=== PATIENT | female | born 1960 | race Caucasian/White ===

== ENCOUNTER 2018-09-17 14:10 | Emergency (ER) | payer SELFPAY ==
[~2018-09-17 14:10] MED LIST: LOR5/325 PO; NO MEDS
--- NOTE | 2018-09-17 14:40 | ER Report ---
History and Physical Time Seen By MD: 14:40 HPI/ROS CHIEF COMPLAINT: Left wrist pain HISTORY OF PRESENT ILLNESS: 58-year-old female patient presents to emergency room with complaint of left wrist pain. Patient states that she was walking home from the store yesterday when she slipped and fell on the ice. Patient states she fell so hard that she is not able to even put her hand out. Patient denies any numbness or tingling. Patient states she does have significant amounts of pain. Patient states that she did come in last night, however at that time it was full and she was able to wait to be seen. She states that she did elevate her wrist, she applied ice all with no improvement. Patient states the pain has not gotten better his choice, and be evaluated. REVIEW OF SYSTEMS: Respiratory: No cough, no dyspnea. Cardiovascular: No chest pain, no palpitations. Gastrointestinal: No vomiting, no abdominal pain. Musculoskeletal: As noted above Allergies: Coded Allergies: Sulfa (Sulfonamide Antibiotics) (Verified Allergy, Intermediate, "REALLY SICK", 09/17/18) Home Meds Active Scripts Hydrocodone Bit/Acetaminophen (HYDROCODON-ACETAMINOPHEN 5-325) 1 Each Tablet, 1 EACH PO Q4-6H PRN for PAIN, #8 TAB Prov:OWEN CRAMER 09/17/18 Discontinued Reported Medications [No Meds] No Conflict Check, 0 Refills 09/20/09 Discontinued Scripts Hydrocodone Bit/Acetaminophen (HYDROCODON-ACETAMINOPHEN 5-325) 1 Each Tablet, 1 EACH PO Q4-6H PRN for PAIN, #20 TAB 0 Refills TAKE ONE TABLET BY MOUTH EVERY 4-6 HOURS NEEDED FOR PAIN Prov:SKYLER STEVENS MD 04/14/17 Past Medical/Surgical History Patient has a past medical history of jaw fracture, back fracture. Patient has surgical history of jaw surgery. Reviewed Nurses Notes: Yes Hx Substance Use Disorder: No Hx Alcohol Use: No Constitutional Vital Sign - Last 24 Hours 09/17/18 14:41 Temp 98.0 Pulse 57 Resp 16 B/P (MAP) 134/83 Pulse Ox 85 O2 Delivery Room Air Physical Exam General Appearance: The patient is alert, has no immediate need for airway protection and no current signs of toxicity. Respiratory: Chest is non tender, lungs are clear to auscultation. Cardiac: regular rate and rhythm Gastrointestinal: Abdomen is soft and non tender, no masses, bowel sounds normal. Musculoskeletal: Neck: Neck is supple and non tender. Extremities have full range of motion and are non tender. Patient does have tenderness to the left wrist, she does have a deformity of the left wrist. Skin: No rashes or lesions. DIFFERENTIAL DIAGNOSIS: After history and physical exam differential diagnosis was considered for fracture, sprain, dislocation. Medical Decision Making EKG/Imaging Imaging XR WRIST 3 OR MORE VIEWS LT Indication: Fracture, post reduction Comparison: 09/17/2018 Findings: Compared to the prior study, there has been interval reduction of the comminuted angulated intra-articular fracture of the distal radius. Mild dorsal angulation still present but less than prior study. Fracture fragments otherwise appear aligned. Cast material is present. No evidence of radiopaque foreign body. There is no focal soft tissue abnormality. IMPRESSION: 1. Reduction of distal radius fracture with slight dorsal angulation still present Report Dictated By: Gwyn Shields at 09/17/2018 4:26 PM Report E-Signed By: Gwyn Shields at 09/17/2018 4:27 PM FOREARM LEFT Indication: Left forearm pain after fall. Comparison: None available Findings: Two views of the left forearm show distal radial compression fracture with mild dorsal angulation. No other fracture or dislocation. No bony lesions or periosteal normality. No significant degenerative changes. Soft tissues about the wrist does show swelling. No evidence of radiopaque foreign body. IMPRESSION: 1. Distal radial compression fracture. Report Dictated By: Ian Hernández at 09/17/2018 3:16 PM Report E-Signed By: Ian Hernández at 09/17/2018 3:19 PM XR WRIST 3 OR MORE VIEWS LT Indication: Left wrist pain after fall. Comparison: None Available. Findings: Three views of the left wrist. There is a comminuted distal left radial compression fracture with extension to the articular surface. There is mild dorsal angulation at the fracture site. Question of a tiny avulsion fracture off the ulnar styloid. No other fracture. No dislocation. No bony lesions or periosteal abnormality. No appreciable degenerative changes. Soft tissues show swelling. No radiopaque foreign body. IMPRESSION: 1. Distal left radial compression fracture. Possible tiny avulsion off the ulnar styloid. Report Dictated By: Ian Hernández at 09/17/2018 3:19 PM Report E-Signed By: Ian Hernández at 09/17/2018 3:21 PM ED Course/Re-evaluation ED Course Patient was monitored exam room, history and physical were obtained. Differential diagnoses were considered. Patient did have obvious deformity of the left wrist. X-ray of the left wrist and forearm were performed. She did have a distal radial fracture with displacement. I discussed findings with the patient. We discussed treatment options and patient did agree for conscious sedation. I did attempt a hematoma block with reduction. Patient had improvement in alignment with the naked eye. Patient was splinted in a sugar tong splint and a repeat x-ray was performed. Patient had improvement of the displacement with only slight displacement remaining. Patient is neurovascularly intact. We will go ahead and discharge patient home at this time. We'll have her follow-up with [facility]. She is to ice her wrist through the splint. Patient was given a limited supply of pain medication. Patient is return to emergency room with any numbness or tingling in the hand, any worsening of her condition. Patient verbalized understanding and agreement with plan. Procedure: Fracture reduction The rest was reduced in the usual fashion without complications. Post reduction the patient's neurovascular exam is normal. Post reduction x-ray demonstrates reduction of the joint to near anatomic position with slight angulation remaining. The procedure was performed by myself. Procedure: Splint placement. A sugar tong static splint was applied for distal radial fracture. After application of the splint I re-examined the patient. The splint was adequately immobilizing the joint and distal to the splint the patient's circulation and sensation was intact. Decision to Disposition Date: Sep 17, 2018 Decision to Disposition Time: 16:18 Depart Departure Latest Vital Signs Vital Signs Date Time Temp Pulse Resp B/P (MAP) Pulse Ox O2 Delivery O2 Flow Rate FiO2 09/17/18 14:41 98.0 57 16 134/83 85 Room Air Impression: Primary Impression: Left wrist fracture Condition: Improved Disposition: HOME OR SELF-CARE Referrals: KAIT PITTMAN MD New Scripts Hydrocodone Bit/Acetaminophen (HYDROCODON-ACETAMINOPHEN 5-325) 1 Each Tablet 1 EACH PO Q4-6H PRN for PAIN, #8 TAB Prov: OWEN CRAMER [employer] [facility] 09/17/18 Patient Instructions: Wrist Fracture in Adults (ED) Additional Instructions: Limit activity by pain. Ice the wrist through the splint; 2-3 times a day for 20-30 minutes. If the splint is feeling too tight you may loosen the eduin wrap and rewrap it. Follow up with [facility], call tomorrow to make an appointment. Keep the splint dry, wrap it with a bag and tape to keep the water out. Return to the ER with uncontrollable pain or numbness to the hand. You may take Ibuprofen as needed for pain in addition to the pain medication. Don't take any additional Tylenol while on the pain medication. Problem Qualifiers Primary Impression: Left wrist fracture Encounter type: initial encounter Fracture type: closed Qualified Codes: S62.102A - Fracture of unspecified carpal bone, left wrist, initial encounter for closed fracture OWEN CRAMER Sep 17, 2018 14:40
[2018-09-17 15:00] VITALS: BP 129/70
[2018-09-17] MEDS ORDERED: PROPOFOL EMUL 10MG/ML 20 ML VL IV ONE (15:10)
[2018-09-17] MEDS ORDERED: NS(*) 0.9% 1000 ML BAG 1,000 ML IV ONE (15:10)
[2018-09-17] MEDS ORDERED: fentaNYL CITR 100 MCG/2 ML AMP IVP ONE (15:10)
[2018-09-17] MEDS ORDERED: ONDANSETRON 4 MG/2 ML VIAL IVP ONE (15:10)
--- NOTE | 2018-09-17 15:24 | RADIOLOGY IMAGING REPORT ---
FACILITY: [facility] [place] PATIENT NAME: Mari Reyes : 1960 MR: [id number] V: [id number] EXAM DATE: ORDERING PHYSICIAN: OWEN CRAMER TECHNOLOGIST: Location: [facility] Patient: Mari Reyes : 1960 Visit/Account:[id number] Date of Sevice: 09/17/2018 FOREARM LEFT Indication: Left forearm pain after fall. Comparison: None available Findings: Two views of the left forearm show distal radial compression fracture with mild dorsal angulation. N o other fracture or dislocation. No bony lesions or periosteal normality. No significant degenerati ve changes. Soft tissues about the wrist does show swelling. No evidence of radiopaque foreign body. IMPRESSION: 1. Distal radial compression fracture. Report Dictated By: Ian Hernández at 09/17/2018 3:16 PM Report E-Signed By: Ian Hernández at 09/17/2018 3:19 PM WSN:[id number]
--- NOTE | 2018-09-17 15:26 | RADIOLOGY IMAGING REPORT ---
FACILITY: [facility] PATIENT NAME: Mari Reyes : 1960 MR: [id number] V: [id number] EXAM DATE: ORDERING PHYSICIAN: OWEN CRAMER TECHNOLOGIST: Location: [facility] Patient: Mari Reyes : 1960 Visit/Account:[id number] Date of Sevice: 09/17/2018 XR WRIST 3 OR MORE VIEWS LT Indication: Left wrist pain after fall. Comparison: None Available. Findings: Three views of the left wrist. There is a comminuted distal left radial compression fracture with ex tension to the articular surface. There is mild dorsal angulation at the fracture site. Question of a tiny avulsion fracture off the ulnar styloid. No other fracture. No dislocation. No bony lesion s or periosteal abnormality. No appreciable degenerative changes. Soft tissues show swelling. No r adiopaque foreign body. IMPRESSION: 1. Distal left radial compression fracture. Possible tiny avulsion off the ulnar styloid. Report Dictated By: Ian Hernández at 09/17/2018 3:19 PM Report E-Signed By: Ian Hernández at 09/17/2018 3:21 PM [id number]
[2018-09-17] MEDS ORDERED: HYDR-385 PO (16:16)
--- NOTE | 2018-09-17 16:31 | RADIOLOGY IMAGING REPORT ---
FACILITY: [facility] PATIENT NAME: Mari Reyes : 1960 MR: [id number] V: [id number] EXAM DATE: ORDERING PHYSICIAN: OWEN CRAMER TECHNOLOGIST: Location: [facility] [place] Patient: Mari Reyes : 1960 Visit/Account:[id number] Date of Sevice: 09/17/2018 XR WRIST 3 OR MORE VIEWS LT Indication: Fracture, post reduction Comparison: 09/17/2018 Findings: Compared to the prior study, there has been interval reduction of the comminuted angulated intra-therese cular fracture of the distal radius. Mild dorsal angulation still present but less than prior study. Fracture fragments otherwise appear aligned. Cast material is present. No evidence of radiopaque foreign body. There is no focal soft tissue abnormality. IMPRESSION: 1. Reduction of distal radius fracture with slight dorsal angulation still present Report Dictated By: Gwyn Shields at 09/17/2018 4:26 PM Report E-Signed By: Gwyn Shields at 09/17/2018 4:27 PM WSN:[id number]
== END 2018-09-17 16:41 | disposition home or self-care (01) ==
LOC: ER 14:42
DX: S62.102A Fracture of unspecified carpal bone, left wrist, initial encounter for closed fracture (principal); W00.0XXA Fall on same level due to ice and snow, initial encounter
CPT/HCPCS: 99284